=== PATIENT | male | born 1965 | race American Indian/Alaskan Native ===

== ENCOUNTER 2020-12-14 06:50 | Emergency (ER) | payer SELFPAY ==
--- NOTE | 2020-12-14 07:47 | Emergency Department Report ---
ED Shortness of Breath HPI - General Chief Complaint: Dyspnea/Respdistress Stated Complaint: DANIELE Time Seen by Provider: 12/14/20 07:10 Source: patient Mode of arrival: Ambulatory Limitations: No Limitations - History of Present Illness Initial Comments: 55-year-old male presents to ED with shortness of breath. Patient states he has been worsening over the last 2 to 3 days. Patient states that he is having dyspnea on exertion. States initially it would get better if he would stop to catch his breath, however now, resting does not help. He denies any chest pain, fever, cough, leg pain or swelling. Patient reports tobacco, cocaine, marijuana use. Patient has been fully vaccinated with Covid vaccine. MD Complaint: shortness of breath -: days(s) (3) Severity: moderate Quality: other (painless) Consistency: constant Improves With: nothing Worsens With: lying flat, exertion Treatments Prior to Arrival: none - Related Data Home Oxygen Therapy: No Previous Rx's Medication Instructions Recorded Last Taken Type Albuterol Sulfate [Proventil Hfa] 2 puff IH Q4HR PRN #1 hfa.aer.ad 12/14/20 Unknown Rx hydroCHLOROthiazide [HCTZ] 25 mg PO QDAY #30 tablet 12/14/20 Unknown Rx predniSONE [Deltasone] 50 mg PO QDAY #5 tab 12/14/20 Unknown Rx Allergies Allergy/AdvReac Type Severity Reaction Status Date / Time No Known Allergies Allergy Verified 12/14/20 12:28 ED Review of Systems ROS: Stated complaint: DANIELE Other details as noted in HPI Comment: All other systems reviewed and negative Constitutional: denies: chills, fever Respiratory: shortness of breath. denies: cough Cardiovascular: denies: chest pain, edema ED Past Medical Hx - Past Medical History Previous Medical History?: No - Surgical History Past Surgical History?: Yes - Social History Smoking Status: Current Every Day Smoker Substance Use Type: Alcohol, Cocaine, Marijuana - Medications Home Medications: Home Medications Medication Instructions Recorded Confirmed Last Taken Type Albuterol Sulfate [Proventil Hfa] 2 puff IH Q4HR PRN #1 hfa.aer.ad 12/14/20 Unknown Rx hydroCHLOROthiazide [HCTZ] 25 mg PO QDAY #30 tablet 12/14/20 Unknown Rx predniSONE [Deltasone] 50 mg PO QDAY #5 tab 12/14/20 Unknown Rx ED Physical Exam - General Limitations: No Limitations General appearance: alert - Head Head exam: Present: atraumatic, normocephalic - Eye Eye exam: Present: normal appearance - ENT ENT exam: Present: mucous membranes moist - Neck Neck exam: Present: normal inspection - Respiratory Respiratory exam: Present: respiratory distress (mild), wheezes (Faint), other (tachypneic) - Cardiovascular Cardiovascular Exam: Present: regular rate, normal rhythm - GI/Abdominal GI/Abdominal exam: Present: soft. Absent: distended, tenderness - Extremities Exam Extremities exam: Present: normal inspection - Neurological Exam Neurological exam: Present: alert, oriented X3 - Psychiatric Psychiatric exam: Present: normal affect, normal mood - Skin Skin exam: Present: warm, dry, intact, normal color ED Course Vital Signs 12/14/20 12/14/20 12/14/20 07:05 08:00 08:30 Temperature 98.0 F Pulse Rate 85 75 77 Pulse Rate [ Bilateral] Respiratory 32 H 25 H 25 H Rate Respiratory Rate [Bilateral ] Blood Pressure 167/92 171/97 181/108 O2 Sat by Pulse 95 100 94 Oximetry 12/14/20 12/14/20 12/14/20 09:00 09:09 09:30 Temperature Pulse Rate 78 86 Pulse Rate [ Bilateral] Respiratory 24 30 H Rate Respiratory Rate [Bilateral ] Blood Pressure 181/108 164/80 O2 Sat by Pulse 98 99 99 Oximetry 12/14/20 12/14/20 12/14/20 10:00 10:10 10:30 Temperature Pulse Rate 86 85 Pulse Rate [ 98 H Bilateral] Respiratory 30 H 26 H Rate Respiratory 20 Rate [Bilateral ] Blood Pressure 143/79 141/79 O2 Sat by Pulse 98 100 Oximetry 12/14/20 12/14/20 12/14/20 11:00 11:30 12:00 Temperature Pulse Rate 91 H 97 H 92 H Pulse Rate [ Bilateral] Respiratory 26 H 25 H 18 Rate Respiratory Rate [Bilateral ] Blood Pressure 150/75 136/79 154/76 O2 Sat by Pulse 99 99 100 Oximetry 12/14/20 12/14/20 12:30 13:00 Temperature Pulse Rate 103 H Pulse Rate [ Bilateral] Respiratory 22 Rate Respiratory Rate [Bilateral ] Blood Pressure 155/78 144/82 O2 Sat by Pulse 98 95 Oximetry ED Medical Decision Making - Lab Data Result diagrams: 12/14/20 08:00 12/14/20 08:00 - EKG Data -: EKG Interpreted by Me EKG shows normal: sinus rhythm, intervals, QRS complexes Rate: normal - EKG Data Interpretation: other (Right axis deviation, inferior lateral T wave inversions) - Radiology Data Radiology results: report reviewed, image reviewed - Medical Decision Making 55-year-old male presents to ED with shortness of breath. Patient not hypoxic, however he is slightly tachypneic. Blood pressure is elevated, hydralazine given. EKG shows some T wave inversions, however troponin is normal. Patient denies any chest pain. Initial chest x-ray showed nonspecific inter stitial/reticular opacities with a differential of edema versus lower airway disease. BMP is within normal limits. D-dimer is also normal. CT scan of the chest without contrast was performed which shows possible blebs. There are also some nodular opacities present. Trace pleural effusions present. Patient was given Solu-Medrol and nebulizer treatment. Following nebs, patient is feeling much better. Tachypnea has resolved. O2 sats remained normal. Blood pressure is much better at this time. Patient feels comfortable with discharge home. He will be discharged with prescriptions for antihypertensives, prednisone, and albuterol. Spoke with patient regarding cocaine abuse and smoking cessation. I also spoke with patient regarding findings of pulmonary nodules on CT and need to follow-up in 3 months for repeat scan. Patient also advised to obtain outpatient COVID-19 testing. - Differential Diagnosis CHF, pneumonia, COVID-19, COPD Critical care attestation.: If time is entered above; I have spent that time in minutes in the direct care of this critically ill patient, excluding procedure time. ED Disposition Clinical Impression: Hypertensive urgency, Acute bronchitis Disposition: 01 HOME / SELF CARE / HOMELESS Is pt being admited?: No Condition: Stable Instructions: Acute Bronchitis, Adult, [id number], Managing Your Hypertension, Acute Bronchitis (ED) Additional Instructions: Outpatient COVID-19 testing is advised. Quarantine as necessary. The CAT scan of your chest showed some nodules in your lungs. This could be due to inflammation, however it is recommended that you have a follow-up CT scan in 3 months to evaluate for resolution. Please follow-up with your regular doctor or one of the referred physicians for this. Prescriptions: predniSONE [Deltasone] 50 mg PO QDAY #5 tab hydroCHLOROthiazide [HCTZ] 25 mg PO QDAY #30 tablet Albuterol Sulfate [Proventil Hfa] 2 puff IH Q4HR PRN #1 hfa.aer.ad PRN Reason: Wheezing Referrals: PRIMARY CAREMD [Primary Care Provider] - 3-5 Days [facility] [Provider Group] - 3-5 Days [facility] [Outside] - 3-5 Days YNES NORWOOD MD [Staff Physician] - 3-5 Days Forms: Work/School Release Form(ED) Time of Disposition: 12:33
[2020-12-14 08:22] LABS: Basophils # (Auto) 0.1 K/mm3 (0.0-0.1); Basophils % (Auto) 1.2 % (0.0-1.8); Eosinophils # (Auto) 0.1 K/mm3 (0.0-0.4); Hematocrit 41.8 % (35.5-45.6); Hemoglobin 14.5 gm/dl (11.8-15.2); Lymphocytes # (Auto) 1.7 K/mm3 (1.2-5.4); Mean Corpuscular HGB Conc 35 % (32-34); Mean Corpuscular Volume 98 fl (84-94); Monocytes # (Auto) 0.4 K/mm3 (0.0-0.8); Monocytes % (Auto) 6.3 % (0.0-7.3); Platelet Count 177 K/mm3 (140-440); Red Blood Count 4.29 M/mm3 (3.65-5.03); Red Cell Distribution Width 15.3 % (13.2-15.2)
--- NOTE | 2020-12-14 08:25 | XRay Report ---
CHEST PA AND LATERAL VIEWS INDICATION: sob. COMPARISON: None. FINDINGS: Support devices: None. Heart: Within normal limits. Lungs/Pleura: Mild diffuse interstitial/reticular opacities are noted. No pleural abnormality. IMPRESSION: 1. Nonspecific diffuse interstitial/reticular opacities. Interstitial edema or lower airways disease could have this appearance. Signer Name: Dominguez Roman MD Signed: 12/14/2020 8:21 AM Workstation Name: [id number]
[2020-12-14 08:33] LABS: INR 0.95 (0.87-1.13); Partial Thromboplastin Time 29.3 Sec. (24.2-36.6)
[2020-12-14] MEDS ORDERED: hydrALAZINE 20 MG/1 ML INJ IV ONE (08:34)
[2020-12-14 08:51] LABS: Alanine Aminotransferase 16 units/L (7-56); Albumin 3.8 g/dL (3.9-5); BUN/Creatinine Ratio 17; Bilirubin,Direct < 0.2 mg/dL (0-0.2); Blood Urea Nitrogen 15 mg/dL (9-20); Calcium 8.5 mg/dL (8.4-10.2); Hemolysis Index 9
--- NOTE | 2020-12-14 09:39 | Cat Scan Report ---
CT CHEST WITHOUT IV CONTRAST INDICATION: sob. COMPARISON: Chest radiographs earlier today. TECHNIQUE: All CT scans at this location are performed using CT dose reduction for ALARA by means of automated e xposure control. Axial CT images were obtained through the chest. FINDINGS: Upper Abdomen: No acute abnormality. Skeletal System: No acute abnormality. Chest: Great Vessels: No acute abnormality. Heart: Heart size is normal. There is mild to moderate coronary artery calcification. Mediastinum & Janelle: There is mild mediastinal adenopathy. Lungs: Extensive subpleural punctate lucent foci are seen throughout both upper lobes. Could be blebs ; honeycombing could have this appearance. Within the right upper lobe there are patchy opacities todd t are somewhat nodular. The largest of these at the posterior lateral apex measures 1.3 cm on axial s eries 2 image 32. There are a few subtle peribronchovascular opacities in the left lung as well. Pleura: There are trace effusions. No pneumothorax. Additional Findings: None. IMPRESSION: 1. Evaluation of the lung parenchyma is limited due to respiratory motion artifact, particularly in t he bases. 2. There is extensive subpleural cystic changes throughout the upper lobes. These could be blebs or a reas of honeycombing. 3. Nodular opacities in the right upper lobe may be inflammatory/infectious in etiology. The largest of these measures 1.3 cm. Given that these have a somewhat nodular configuration, follow-up is recomm ended in 3 months to evaluate for resolution. Mild mediastinal adenopathy may be reactive. 4. Trace pleural effusions. Signer Name: Dominguez Roman MD Signed: 12/14/2020 9:35 AM Workstation Name: [id number]
[2020-12-14] MEDS ORDERED: ALBUTEROL 2.5 MG/3 ML NEBU IH ONE (09:43)
[2020-12-14] MEDS ORDERED: IPRATROPIUM 0.02% NEBU 2.5 ML IH ONE (09:43)
[2020-12-14] MEDS ORDERED: methylPREDNISolone Sod Succinate 125 MG/2 ML INJ IM ONE (10:24)
[2020-12-14 13:23] VITALS: BP 144/82
--- NOTE | 2020-12-16 10:54 | Electrocardiograph Report ---
[facility] Test Date: 2020-12-14 Test Time: 07:16:41 Pat Name: CEDRIC CAMPUZANO Department: Room: Gender: M [place] Historian: BELL : 1965 Requested By: VITA MIGUEL Order Number: [id number] Reading MD: Rony Byrd Measurements Intervals Gypsy Rate: 81 P: 76 RI: 158 QRS: 107 QRSD: 89 T: -44 QT: 382 QTc: 444 Interpretive Statements Sinus rhythm Right atrial enlargement Right axis deviation lpfb LVH WITH SECONDARY REPOLARIZATION CHANGES No previous ECG available for comparison Electronically Signed On 12-16-2020 10:53:36 EDT by Rony Byrd
== END 2020-12-14 13:23 | disposition home or self-care (01) ==
LOC: ED 06:50
DX: J20.9 Acute bronchitis, unspecified (principal); I10 Essential (primary) hypertension; F17.200 Nicotine dependence, unspecified, uncomplicated; F12.10 Cannabis abuse, uncomplicated; F14.10 Cocaine abuse, uncomplicated
CPT/HCPCS: 36415; 71046; 71250; 80048; 80076; 83880; 84484; 85025; 85379; 85610; 85730; 93005; 94644; 96372; 96374; 99284; J0360; J2930